=== PATIENT | male | born 1945 | race Two or more races ===

== ENCOUNTER → 2021-04-12 11:35 | Outpatient (CLI) | payer OTHER ==
[~2021-04-12 11:35] MED LIST: ATORVASTATIN CA20 MG; FORTAMET500 MG PO; GABAPEN PO; GABAPENTIN400 MG PO; SIMVAST PO; SIMVASTATIN10 MG PO; SYNTHROID175 MCG PO
== END | disposition home or self-care (01) ==
LOC: LAB 11:35
PROVIDERS: ATTEND Radiology Diagnostic Radiology
DX: C18.4 Malignant neoplasm of transverse colon (principal); Z51.81 Encounter for therapeutic drug level monitoring

== ENCOUNTER 2021-04-19 07:06 | Outpatient (CLI) | payer OTHER ==
[2021-04-26] MEDS ORDERED: SYNTHROID175 MCG PO (12:02)
[2021-04-26] MEDS ORDERED: FORTAMET500 MG PO (12:02)
[2021-04-26] MEDS ORDERED: SIMVAST PO (12:03)
[2021-04-26] MEDS ORDERED: GABAPEN PO (12:03)
[2021-04-30] MEDS ORDERED: ATORVASTATIN CA20 MG (08:56)
[2021-04-30] MEDS ORDERED: GABAPENTIN400 MG PO (08:57)
[2021-04-30] MEDS ORDERED: SIMVASTATIN10 MG PO (08:57)
== END 2021-04-19 07:16 | disposition home or self-care (01) ==
LOC: TOM 07:06
PROVIDERS: ATTEND Colon & Rectal Surgery
DX: C18.4 Malignant neoplasm of transverse colon (principal)
CPT/HCPCS: 71260; 74177; Q9965

== ENCOUNTER 2021-04-28 07:40 | Day surgery (SDC) | payer OTHER ==
[~2021-04-28 07:40] MED LIST changes: -ATORVASTATIN CA20 MG; -GABAPENTIN400 MG PO; -SIMVASTATIN10 MG PO
[2021-04-30] MEDS ORDERED: ATORVASTATIN CA20 MG (08:56)
[2021-04-30] MEDS ORDERED: SIMVASTATIN10 MG PO (08:57)
[2021-04-30] MEDS ORDERED: GABAPENTIN400 MG PO (08:57)
== END 2021-04-28 12:40 | disposition home or self-care (01) ==
LOC: AMB-ENDOS 07:40 → CIR.AMB 11:03 → AMB-ENDOS 11:04
PROVIDERS: ATTEND Colon & Rectal Surgery
DX: D12.3 Benign neoplasm of transverse colon (principal); K64.8 Other hemorrhoids; Z20.822 Contact with and (suspected) exposure to COVID-19